=== PATIENT | female | born 1995 | race Caucasian/White ===

== ENCOUNTER 2016-10-28 15:03 | Emergency (ER) | payer SELFPAY ==
[~2016-10-28] VITALS: Ht 162.6 cm; Wt 54.1 kg
[~2016-10-28 15:03] MED LIST: AMOXICILLIN500 MG PO; ATIVAN0.5 MG PO; BACTRIM DS1 TAB PO; CIPROFLOXACN500 MG PO; K-TAB20 MEQ PO; MOTRIN800 MG PO; PHENERGAN25 MG RE; PRENATA4 PO; TESSALON PER100 MG PO; ZITHROMAX250 MG PO; ZOFRAN ODT4 MG PO; ZOFRAN4 MG/TAB PO; ZPAK PO
[2016-10-28 16:44] LABS: HEMATOCRIT 35.6 % (37.0-47.0); HEMOGLOBIN 12.2 g/dl (12.0-16.0); IMMATURE GRANULOCYTES 0.4 % (0.0-1.0); MEAN CELL VOLUME 94.2 fL CALC (80.0-100.0); MEAN CORPUSCULAR HGB 32.3 pG CALC (26.0-32.0); MEAN CORPUSCULAR HGB CONC 34.3 g/L CALC (32.0-36.0); NEUT# 8.47 thou/uL (2.00-7.15); RED BLOOD COUNT 3.78 mill/uL (4.20-5.60); RED CELL DISTRI WIDTH 12.7 % (11.5-15.5)
[2016-10-28 17:07] LABS: URINE BILIRUBIN - DIPSTICK NEGATIVE (NEGATIVE); URINE BLOOD DIPSTICK NEGATIVE (NEGATIVE); URINE CLARITY CLEAR; URINE COLOR YELLOW; URINE GLUCOSE - DIPSTICK NEGATIVE (NEGATIVE); URINE KETONE 40 mg/dL (NEGATIVE); URINE LEUK ESTERASE NEGATIVE (NEGATIVE); URINE NITRITE - DIPSTICK NEGATIVE (Negative); URINE PROTEIN - DIPSTICK NEGATIVE (NEG-TRACE); URINE SPECIFIC GRAVITY >=1.030; URINE UROBILINOGEN - DIPSTICK 0.2 E.U./dL (0.2)
[2016-10-28 17:25] LABS: ALBUMIN 4.1 g/dL (3.2-5.0); ALKALINE PHOSPHATASE 42 u/l (38-126); ANION GAP 16 (6-22 (CALC)); BILIRUBIN, TOTAL 1.5 mg/dL (0.0-1.4); BUN 8 mg/dL (7-17); BUN/CREATININE RATIO 13 (12-20 (CALC)); CALCIUM 9.4 mg/dL (8.4-10.2); CARBON DIOXIDE 22 mmol/l (22-30); CHLORIDE 101 mmol/l (95-108); CREATININE 0.6 mg/dL (0.5-1.0); GFR > 60 ML/MIN (>=60 (CALC)); GFR FOR AFR.AMER. > 60 ML/MIN (>=60 (CALC)); GLUCOSE 79 mg/dL (65-105); SGOT/AST 19 u/l (14-36); SGPT/ALT 31 u/l (9-52); SODIUM 136 mmol/l (137-146); TOTAL PROTEIN 6.4 g/dL (6.3-8.2)
[2016-10-28 18:07] LABS: BETA-HCG, QUANT(RESULT NUMBER) 55516 mIU/mL
[2016-10-28] MEDS ORDERED: PRENATAL MULTI1 CAP PO (18:07)
[2016-10-28 19:09] VITALS: BP 108/62
== END 2016-10-28 19:12 | disposition home or self-care (01) | DRG 778 ==
LOC: ED 15:03
PROVIDERS: Emergency Medicine
DX: O20.0 Threatened abortion (principal); R10.31 Right lower quadrant pain; Z3A.01 Less than 8 weeks gestation of pregnancy

== ENCOUNTER 2016-12-02 12:40 | Emergency (ER) | payer OTHER ==
[~2016-12-02] VITALS: Ht 162.6 cm; Wt 52.6 kg
[~2016-12-02 12:40] MED LIST changes: +PRENATAL MULTI1 CAP PO
[2016-12-02 14:07] LABS: IMMATURE GRANULOCYTES 0.5 % (0.0-1.0); MEAN CELL VOLUME 93.7 fL CALC (80.0-100.0); MEAN CORPUSCULAR HGB 32.8 pG CALC (26.0-32.0); NEUT# 11.05 thou/uL (2.00-7.15); RED BLOOD COUNT 4.27 mill/uL (4.20-5.60); RED CELL DISTRI WIDTH 12.6 % (11.5-15.5)
[2016-12-02 14:08] LABS: URINE BILIRUBIN - DIPSTICK SMALL (NEGATIVE); URINE BLOOD DIPSTICK NEGATIVE (NEGATIVE); URINE CLARITY CLEAR; URINE COLOR YELLOW; URINE GLUCOSE - DIPSTICK NEGATIVE (NEGATIVE); URINE KETONE >=80 mg/dL (NEGATIVE); URINE LEUK ESTERASE NEGATIVE (NEGATIVE); URINE NITRITE - DIPSTICK NEGATIVE (Negative); URINE PH 6.5 (4.5-8.0); URINE PROTEIN - DIPSTICK 30 mg/dL (NEG-TRACE); URINE SPECIFIC GRAVITY 1.025; URINE UROBILINOGEN - DIPSTICK 0.2 E.U./dL (0.2)
[2016-12-02 14:09] LABS: URINE EPITHELIAL CELLS MODERATE EPI/hpf (0-FEW); URINE RBC 0-2 RBC/hpf (0-5)
[2016-12-02 14:20] LABS: ALBUMIN 5.1 g/dL (3.2-5.0); ALKALINE PHOSPHATASE 48 u/l (38-126); ANION GAP 18 (6-22 (CALC)); BILIRUBIN, TOTAL 1.6 mg/dL (0.0-1.4); BUN 5 mg/dL (7-17); BUN/CREATININE RATIO 11 (12-20 (CALC)); CARBON DIOXIDE 23 mmol/l (22-30); CHLORIDE 102 mmol/l (95-108); CREATININE 0.5 mg/dL (0.5-1.0); GFR > 60 ML/MIN (>=60 (CALC)); GFR FOR AFR.AMER. > 60 ML/MIN (>=60 (CALC)); GLUCOSE 84 mg/dL (65-105); POTASSIUM 3.7 mmol/l (3.5-5.1); SGOT/AST 18 u/l (14-36); SGPT/ALT 31 u/l (9-52); SODIUM 139 mmol/l (137-146)
[2016-12-02 14:38] LABS: BETA-HCG, QUANT(RESULT NUMBER) 56093 mIU/mL
[2016-12-02 15:46] VITALS: BP 117/75
== END 2016-12-02 16:43 | disposition home or self-care (01) | DRG 778 ==
LOC: ED 12:40
PROVIDERS: Emergency Medicine
DX: O20.0 Threatened abortion (principal); Z3A.12 12 weeks gestation of pregnancy

== ENCOUNTER 2017-03-03 00:10 | Observation (INO) | payer OTHER ==
[2017-03-03] VITALS (13 sets, daily range): BP systolic 86–126; BP diastolic 45–62
[~2017-03-03] VITALS: Ht 162.6 cm; Wt 57.6 kg
[2017-03-03 00:32] LABS: URINE BILIRUBIN - DIPSTICK NEGATIVE (NEGATIVE); URINE BLOOD DIPSTICK NEGATIVE (NEGATIVE); URINE COLOR YELLOW; URINE GLUCOSE - DIPSTICK NEGATIVE (NEGATIVE); URINE KETONE 40 mg/dL (NEGATIVE); URINE LEUK ESTERASE NEGATIVE (NEGATIVE); URINE NITRITE - DIPSTICK NEGATIVE (Negative); URINE PROTEIN - DIPSTICK NEGATIVE (NEG-TRACE); URINE SPECIFIC GRAVITY 1.015; URINE UROBILINOGEN - DIPSTICK 0.2 E.U./dL (0.2)
[2017-03-03 00:47] LABS: URINE CLARITY SL CLOUDY
[2017-03-03 00:48] LABS: BARBITURATES NEGATIVE (NEGATIVE); COCAINE NEGATIVE (NEGATIVE); METHADONE NEGATIVE (NEGATIVE); OXCYCODONE NEGATIVE (NEGATIVE); TETRAHYDROCANNABIONOL POSITIVE (NEGATIVE); TRICYLIC ANTIDEPRESSANTS NEGATIVE (NEGATIVE)
[2017-03-03 01:56] LABS: HEMOGLOBIN 10.3 g/dl (12.0-16.0); IMMATURE GRANULOCYTES 1.4 % (0.0-1.0); MEAN CELL VOLUME 95.1 fL CALC (80.0-100.0); MEAN CORPUSCULAR HGB 33.8 pG CALC (26.0-32.0); MEAN CORPUSCULAR HGB CONC 35.5 g/L CALC (32.0-36.0); NEUT# 21.75 thou/uL (2.00-7.15); RED BLOOD COUNT 3.05 mill/uL (4.20-5.60); RED CELL DISTRI WIDTH 12.9 % (11.5-15.5)
[2017-03-03 02:18] LABS: ALBUMIN 3.3 g/dL (3.2-5.0); ALKALINE PHOSPHATASE 43 u/l (38-126); ANION GAP 11 (6-22 (CALC)); BILIRUBIN, TOTAL 1.4 mg/dL (0.0-1.4); BUN 4 mg/dL (7-17); BUN/CREATININE RATIO 9 (12-20 (CALC)); CALCIUM 8.9 mg/dL (8.4-10.2); CARBON DIOXIDE 21 mmol/l (22-30); CHLORIDE 101 mmol/l (95-108); CREATININE 0.4 mg/dL (0.5-1.0); GFR > 60 ML/MIN (>=60 (CALC)); GFR FOR AFR.AMER. > 60 ML/MIN (>=60 (CALC)); GLUCOSE 101 mg/dL (65-105); POTASSIUM 3.9 mmol/l (3.5-5.1); SGOT/AST 22 u/l (14-36); SGPT/ALT 18 u/l (9-52); SODIUM 130 mmol/l (137-146); TOTAL PROTEIN 5.7 g/dL (6.3-8.2)
[2017-03-04 00:15] VITALS: BP 93/52
[2017-03-04 06:01] VITALS: BP 96/51
[2017-03-04 06:54] LABS: HEMATOCRIT 28.7 % (37.0-47.0); HEMOGLOBIN 9.7 g/dl (12.0-16.0); MEAN CELL VOLUME 99.3 fL CALC (80.0-100.0); MEAN CORPUSCULAR HGB 33.6 pG CALC (26.0-32.0); MEAN CORPUSCULAR HGB CONC 33.8 g/L CALC (32.0-36.0); NEUT# 6.83 thou/uL (2.00-7.15); RED BLOOD COUNT 2.89 mill/uL (4.20-5.60); RED CELL DISTRI WIDTH 13.4 % (11.5-15.5)
[2017-03-04 07:03] VITALS: BP 109/62
[2017-03-04 11:30] VITALS: BP 112/58
[2017-03-04] MEDS ORDERED: KEFLEX500 MG PO (12:53)
== END 2017-03-04 13:05 | disposition home or self-care (01) | DRG 781 ==
LOC: OB 00:10 → OBOP 00:10 → OB 00:55
PROVIDERS: ADMIT Obstetrics & Gynecology; ATTEND Obstetrics & Gynecology
DX: O23.02 Infections of kidney in pregnancy, second trimester (principal); O99.322 Drug use complicating pregnancy, second trimester; F12.90 Cannabis use, unspecified, uncomplicated; O21.0 Mild hyperemesis gravidarum; Z3A.24 24 weeks gestation of pregnancy
CPT/HCPCS: G0378

== ENCOUNTER 2018-02-06 15:04 | Emergency (ER) | payer OTHER ==
[~2018-02-06] VITALS: Ht 162.6 cm; Wt 76.0 kg
[~2018-02-06 15:04] MED LIST changes: +KEFLEX500 MG PO
[2018-02-06 16:19] LABS: HEMOGLOBIN 11.5 g/dl (12.0-16.0); IMMATURE GRANULOCYTES 0.5 % (0.0-5.0); MEAN CORPUSCULAR HGB 30.3 pG CALC (26.0-32.0); MEAN CORPUSCULAR HGB CONC 32.9 g/L CALC (32.0-36.0); NEUT# 6.46 thou/uL (2.00-7.15); RED BLOOD COUNT 3.8 mill/uL (4.20-5.60); RED CELL DISTRI WIDTH 13.8 % (11.5-15.5)
[2018-02-06 16:20] LABS: MEAN CELL VOLUME 92.1 fL CALC (80.0-100.0)
[2018-02-06 16:21] LABS: URINE BILIRUBIN - DIPSTICK NEGATIVE (NEGATIVE); URINE BLOOD DIPSTICK TRACE-INTACT (NEGATIVE); URINE CLARITY CLEAR; URINE COLOR YELLOW; URINE GLUCOSE - DIPSTICK NEGATIVE (NEGATIVE); URINE KETONE NEGATIVE (NEGATIVE); URINE LEUK ESTERASE NEGATIVE (NEGATIVE); URINE NITRITE - DIPSTICK NEGATIVE (Negative); URINE PROTEIN - DIPSTICK NEGATIVE (NEG-TRACE); URINE UROBILINOGEN - DIPSTICK 0.2 E.U./dL (0.2)
[2018-02-06 16:41] LABS: ALKALINE PHOSPHATASE 52 u/l (38-126); BILIRUBIN, TOTAL 0.6 mg/dL (0.0-1.4); BUN 11 mg/dL (7-17); BUN/CREATININE RATIO 19 (12-20 (CALC)); CARBON DIOXIDE 20 mmol/l (22-30); CHLORIDE 107 mmol/l (95-108); CREATININE 0.6 mg/dL (0.5-1.0); GFR > 60 ML/MIN (>=60 (CALC)); GFR FOR AFR.AMER. > 60 ML/MIN (>=60 (CALC)); LIPASE 170 u/l (23-300); POTASSIUM 3.8 mmol/l (3.5-5.1); SGOT/AST 25 u/l (14-36); TOTAL PROTEIN 6.8 g/dL (6.3-8.2)
[2018-02-06 16:47] LABS: ANION GAP 17 (6-22 (CALC)); SODIUM 140 mmol/l (137-146)
[2018-02-06 17:50] VITALS: BP 122/56
== END 2018-02-06 18:03 | disposition home or self-care (01) | DRG 90 ==
LOC: ED 15:04
PROVIDERS: Family Medicine
DX: S06.0X0A Concussion without loss of consciousness, initial encounter (principal); S00.03XA Contusion of scalp, initial encounter; V53.6XXA Passenger in pick-up truck or van injured in collision with car, pick-up truck or van in traffic accident, initial encounter

== ENCOUNTER 2019-09-27 05:14 | Emergency (ER) | payer MEDICAID ==
[~2019-09-27] VITALS: Ht 162.6 cm; Wt 68.2 kg
[2019-09-27 06:09] LABS: IMMATURE GRANULOCYTES 0.7 % (0.0-5.0); MEAN CELL VOLUME 89.5 fL CALC (80.0-100.0); MEAN CORPUSCULAR HGB 31.3 pG CALC (26.0-32.0); NEUT# 11.72 thou/uL (2.00-7.15); RED BLOOD COUNT 4.66 mill/uL (4.20-5.60); RED CELL DISTRI WIDTH 13.1 % (11.5-15.5)
[2019-09-27 06:17] LABS: HEMATOCRIT 41.7 % (37.0-47.0); HEMOGLOBIN 14.6 g/dl (12.0-16.0)
[2019-09-27 06:25] LABS: URINE BLOOD DIPSTICK NEGATIVE (NEGATIVE); URINE COLOR YELLOW; URINE GLUCOSE - DIPSTICK NEGATIVE (NEGATIVE); URINE KETONE >=80 mg/dL (NEGATIVE); URINE LEUK ESTERASE NEGATIVE (NEGATIVE); URINE NITRITE - DIPSTICK NEGATIVE (Negative); URINE PROTEIN - DIPSTICK 100 mg/dL (NEG-TRACE); URINE SPECIFIC GRAVITY >=1.030; URINE UROBILINOGEN - DIPSTICK 0.2 E.U./dL (0.2)
[2019-09-27 06:26] LABS: URINE BILIRUBIN - DIPSTICK NEGATIVE (NEGATIVE)
[2019-09-27 06:28] LABS: ALBUMIN 5.2 g/dL (3.2-5.0); ALKALINE PHOSPHATASE 69 u/l (38-126); ANION GAP 19 (6-22 (CALC)); BILIRUBIN, TOTAL 1.8 mg/dL (0.0-1.4); BUN 14 mg/dL (7-17); BUN/CREATININE RATIO 21 (12-20 (CALC)); CARBON DIOXIDE 21 mmol/l (22-30); CHLORIDE 98 mmol/l (95-108); CREATININE 0.7 mg/dL (0.5-1.0); ETHYL ALCOHOL 0 mg/dl (0-30); GFR > 60 ML/MIN (>=60 (CALC)); GFR FOR AFR.AMER. > 60 ML/MIN (>=60 (CALC)); POTASSIUM 3.4 mmol/l (3.5-5.1); SGOT/AST 30 u/l (14-36); SODIUM 134 mmol/l (137-146); TOTAL PROTEIN 8.6 g/dL (6.3-8.2)
[2019-09-27 06:30] LABS: URINE RBC 0-2 RBC/hpf (0-5); URINE SQUAMOUS EPITHELIAL CELL FEW EPI/hpf (0-FEW); URINE WBC 0-2 WBC/hpf (0-5)
[2019-09-27 06:31] LABS: URINE AMORPH SEDIMENT MANY hpf (NONE-FEW)
[2019-09-27] MEDS ORDERED: VISTARIL25 MG PO (06:53)
[2019-09-27] MEDS ORDERED: PHENERGAN25 MG RE (06:53)
[2019-09-27 07:08] VITALS: BP 133/78
== END 2019-09-27 07:31 | disposition home or self-care (01) | DRG 833 ==
LOC: ED 05:14
PROVIDERS: Family Medicine
DX: O21.9 Vomiting of pregnancy, unspecified (principal); O99.340 Other mental disorders complicating pregnancy, unspecified trimester; O99.330 Smoking (tobacco) complicating pregnancy, unspecified trimester; F17.200 Nicotine dependence, unspecified, uncomplicated; Z3A.00 Weeks of gestation of pregnancy not specified

== ENCOUNTER 2019-09-29 08:11 | Emergency (ER) | payer OTHER ==
[~2019-09-29] VITALS: Ht 162.6 cm; Wt 63.6 kg
[~2019-09-29 08:11] MED LIST changes: +VISTARIL25 MG PO
[2019-09-29 08:51] LABS: HEMATOCRIT 39.6 % (37.0-47.0); HEMOGLOBIN 13.9 g/dl (12.0-16.0); IMMATURE GRANULOCYTES 0.8 % (0.0-5.0); MEAN CORPUSCULAR HGB 31.6 pG CALC (26.0-32.0); MEAN CORPUSCULAR HGB CONC 35.1 g/dL CAL (32.0-36.0); NEUT# 11.81 thou/uL (2.00-7.15); RED BLOOD COUNT 4.4 mill/uL (4.20-5.60); RED CELL DISTRI WIDTH 12.6 % (11.5-15.5)
[2019-09-29 08:54] LABS: URINE BLOOD DIPSTICK NEGATIVE (NEGATIVE); URINE COLOR YELLOW; URINE GLUCOSE - DIPSTICK NEGATIVE (NEGATIVE); URINE KETONE >=80 mg/dL (NEGATIVE); URINE LEUK ESTERASE NEGATIVE (NEGATIVE); URINE NITRITE - DIPSTICK NEGATIVE (Negative); URINE PROTEIN - DIPSTICK 30 mg/dL (NEG-TRACE); URINE SPECIFIC GRAVITY >=1.030
[2019-09-29 08:55] LABS: URINE BILIRUBIN - DIPSTICK NEGATIVE (NEGATIVE)
[2019-09-29] MEDS ORDERED: PYRIDOXINE25 MG PO (08:56)
[2019-09-29 09:02] LABS: URINE BACTERIA FEW hpf; URINE MUCUS FEW hpf (NONE-FEW); URINE SQUAMOUS EPITHELIAL CELL MODERATE EPI/hpf (0-FEW); URINE WBC 0-2 WBC/hpf (0-5)
[2019-09-29 09:08] LABS: ALBUMIN 4.9 g/dL (3.2-5.0); ALKALINE PHOSPHATASE 60 u/l (38-126); ANION GAP 19 (6-22 (CALC)); BILIRUBIN, TOTAL 1.9 mg/dL (0.0-1.4); BUN 11 mg/dL (7-17); BUN/CREATININE RATIO 22 (12-20 (CALC)); CARBON DIOXIDE 20 mmol/l (22-30); CHLORIDE 97 mmol/l (95-108); CREATININE 0.5 mg/dL (0.5-1.0); GFR > 60 ML/MIN (>=60 (CALC)); GFR FOR AFR.AMER. > 60 ML/MIN (>=60 (CALC)); LIPASE 38 u/l (23-300); SGOT/AST 35 u/l (14-36); SODIUM 133 mmol/l (137-146); TOTAL PROTEIN 7.9 g/dL (6.3-8.2)
[2019-09-29] MEDS ORDERED: PHENERGAN25 MG/TAB PO (10:01)
[2019-09-29] MEDS ORDERED: K-TAB20 MEQ PO (10:01)
[2019-09-29 11:00] VITALS: BP 128/70
== END 2019-09-29 11:00 | disposition home or self-care (01) | DRG 833 ==
LOC: ED 08:11
PROVIDERS: Family Medicine
DX: O21.9 Vomiting of pregnancy, unspecified (principal); O99.342 Other mental disorders complicating pregnancy, second trimester; F41.9 Anxiety disorder, unspecified; O99.331 Smoking (tobacco) complicating pregnancy, first trimester; F17.200 Nicotine dependence, unspecified, uncomplicated; Z3A.10 10 weeks gestation of pregnancy

== ENCOUNTER 2020-04-17 18:20 | Emergency (ER) | payer OTHER ==
[~2020-04-17 18:20] MED LIST changes: +PHENERGAN25 MG/TAB PO; +PYRIDOXINE25 MG PO
== END 2020-04-17 18:42 | disposition left against medical advice (07) | DRG 951 ==
LOC: ED 18:20 → LWOBS 18:42
DX: Z53.21 Procedure and treatment not carried out due to patient leaving prior to being seen by health care provider (principal)

== ENCOUNTER 2020-05-03 21:11 | Emergency (ER) | payer OTHER ==
[~2020-05-03] VITALS: Ht 162.6 cm; Wt 66.0 kg
[2020-05-03] MEDS ORDERED: PRENATA3 PO (21:33)
[2020-05-03 21:59] LABS: HEMATOCRIT 29.9 % (37.0-47.0); HEMOGLOBIN 9.6 g/dl (12.0-16.0); IMMATURE GRANULOCYTES 0.7 % (0.0-5.0); MEAN CORPUSCULAR HGB 28.5 pG CALC (26.0-32.0); MEAN CORPUSCULAR HGB CONC 32.1 g/dL CAL (32.0-36.0); NEUT# 6.86 thou/uL (2.00-7.15); RED BLOOD COUNT 3.37 mill/uL (4.20-5.60); RED CELL DISTRI WIDTH 13.4 % (11.5-15.5)
[2020-05-03 22:00] LABS: MEAN CELL VOLUME 88.7 fL CALC (80.0-100.0)
[2020-05-03 22:01] LABS: URINE BILIRUBIN - DIPSTICK NEGATIVE (NEGATIVE); URINE BLOOD DIPSTICK NEGATIVE (NEGATIVE); URINE COLOR YELLOW; URINE GLUCOSE - DIPSTICK NEGATIVE (NEGATIVE); URINE KETONE NEGATIVE (NEGATIVE); URINE LEUK ESTERASE NEGATIVE (NEGATIVE); URINE NITRITE - DIPSTICK NEGATIVE (Negative); URINE PROTEIN - DIPSTICK NEGATIVE (NEG-TRACE); URINE SPECIFIC GRAVITY 1.025; URINE UROBILINOGEN - DIPSTICK 0.2 E.U./dL (0.2)
[2020-05-03 22:17] LABS: ALKALINE PHOSPHATASE 90 u/l (38-126); ANION GAP 9 (6-22 (CALC)); BUN 3 mg/dL (7-17); BUN/CREATININE RATIO 7 (12-20 (CALC)); CARBON DIOXIDE 22 mmol/l (22-30); CHLORIDE 103 mmol/l (95-108); CREATININE 0.4 mg/dL (0.5-1.0); GFR > 60 ML/MIN (>=60 (CALC)); GFR FOR AFR.AMER. > 60 ML/MIN (>=60 (CALC)); POTASSIUM 3.4 mmol/l (3.5-5.1); SGOT/AST 22 u/l (14-36); SODIUM 131 mmol/l (137-146)
[2020-05-03 22:18] LABS: ALBUMIN 3.3 g/dL (3.2-5.0); BILIRUBIN, TOTAL 0.8 mg/dL (0.0-1.4); TOTAL PROTEIN 6.1 g/dL (6.3-8.2)
[2020-05-03 22:50] VITALS: BP 122/67
== END 2020-05-03 23:26 | disposition home or self-care (01) ==
LOC: ED 21:11
PROVIDERS: Family Medicine
DX: O99.353 Diseases of the nervous system complicating pregnancy, third trimester (principal); G43.109 Migraine with aura, not intractable, without status migrainosus; O9A.213 Injury, poisoning and certain other consequences of external causes complicating pregnancy, third trimester; S39.012A Strain of muscle, fascia and tendon of lower back, initial encounter; O99.333 Smoking (tobacco) complicating pregnancy, third trimester; F17.200 Nicotine dependence, unspecified, uncomplicated; X58.XXXA Exposure to other specified factors, initial encounter; Z3A.37 37 weeks gestation of pregnancy

== ENCOUNTER 2020-12-03 06:11 | Emergency (ER) | payer OTHER ==
[~2020-12-03] VITALS: Ht 162.6 cm; Wt 68.0 kg
[~2020-12-03 06:11] MED LIST changes: +PRENATA3 PO
[2020-12-03 07:09] LABS: IMMATURE GRANULOCYTES 0.6 % (0.0-5.0); MEAN CORPUSCULAR HGB 31.4 pG CALC (26.0-32.0); MEAN CORPUSCULAR HGB CONC 33.2 g/dL CAL (32.0-36.0); NEUT# 8.4 thou/uL (2.00-7.15); RED BLOOD COUNT 4.39 mill/uL (4.20-5.60); RED CELL DISTRI WIDTH 12.8 % (11.5-15.5)
[2020-12-03 07:10] LABS: HEMATOCRIT 41.6 % (37.0-47.0); HEMOGLOBIN 13.8 g/dl (12.0-16.0); MEAN CELL VOLUME 94.8 fL CALC (80.0-100.0)
[2020-12-03 07:22] LABS: ALKALINE PHOSPHATASE 68 u/l (38-126); AMYLASE 45 u/l (30-110); BUN 10 mg/dL (7-17); BUN/CREATININE RATIO 15 (12-20 (CALC)); CHLORIDE 101 mmol/l (95-108); CREATININE 0.7 mg/dL (0.5-1.0); GFR > 60 ML/MIN (>=60 (CALC)); GFR FOR AFR.AMER. > 60 ML/MIN (>=60 (CALC)); LIPASE 36 u/l (23-300); POTASSIUM 3.4 mmol/l (3.5-5.1); SGOT/AST 27 u/l (14-36); SODIUM 137 mmol/l (137-146)
[2020-12-03 07:24] LABS: ALBUMIN 4.6 g/dL (3.2-5.0); ANION GAP 10 (6-22 (CALC)); BILIRUBIN, TOTAL 1.3 mg/dL (0.0-1.4); CARBON DIOXIDE 29 mmol/l (22-30); TOTAL PROTEIN 8.1 g/dL (6.3-8.2)
[2020-12-03 08:46] LABS: URINE BILIRUBIN - DIPSTICK NEGATIVE (NEGATIVE); URINE BLOOD DIPSTICK TRACE-INTACT (NEGATIVE); URINE COLOR YELLOW; URINE GLUCOSE - DIPSTICK NEGATIVE (NEGATIVE); URINE KETONE NEGATIVE (NEGATIVE); URINE PROTEIN - DIPSTICK NEGATIVE (NEG-TRACE); URINE SPECIFIC GRAVITY <=1.005; URINE UROBILINOGEN - DIPSTICK 0.2 E.U./dL (0.2)
[2020-12-03 08:48] LABS: URINE LEUK ESTERASE LARGE (NEGATIVE); URINE NITRITE - DIPSTICK NEGATIVE (Negative)
[2020-12-03 08:55] LABS: URINE RBC 0-2 RBC/hpf (0-5); URINE SQUAMOUS EPITHELIAL CELL FEW EPI/hpf (0-FEW)
[2020-12-03 11:52] VITALS: BP 110/60
== END 2020-12-03 11:53 | disposition home or self-care (01) ==
LOC: ED 06:11
PROVIDERS: Family Medicine
DX: O20.0 Threatened abortion (principal); O23.40 Unspecified infection of urinary tract in pregnancy, unspecified trimester; B96.20 Unspecified Escherichia coli [E. coli] as the cause of diseases classified elsewhere; O99.340 Other mental disorders complicating pregnancy, unspecified trimester; F41.9 Anxiety disorder, unspecified; F32.9 Major depressive disorder, single episode, unspecified; F17.290 Nicotine dependence, other tobacco product, uncomplicated; Z3A.00 Weeks of gestation of pregnancy not specified
CPT/HCPCS: J2790

== ENCOUNTER 2021-10-15 17:03 | Emergency (ER) | payer OTHER ==
[~2021-10-15] VITALS: Ht 162.6 cm; Wt 68.0 kg
[2021-10-15 17:37] LABS: URINE BILIRUBIN - DIPSTICK NEGATIVE (NEGATIVE); URINE BLOOD DIPSTICK NEGATIVE (NEGATIVE); URINE COLOR YELLOW; URINE GLUCOSE - DIPSTICK NEGATIVE (NEGATIVE); URINE KETONE NEGATIVE (NEGATIVE); URINE LEUK ESTERASE TRACE (NEGATIVE); URINE PH 6.5 (4.5-8.0); URINE PROTEIN - DIPSTICK NEGATIVE (NEG-TRACE); URINE UROBILINOGEN - DIPSTICK 0.2 E.U./dL (0.2)
[2021-10-15 17:38] LABS: URINE NITRITE - DIPSTICK NEGATIVE (Negative)
[2021-10-15] MEDS ORDERED: NAPROXEN EC500 MG PO (18:31)
[2021-10-15] MEDS ORDERED: DOXYCYCLINE100 MG PO (18:31)
[2021-10-15 18:39] VITALS: BP 127/87
== END 2021-10-15 18:47 | disposition home or self-care (01) ==
LOC: ED 17:03
DX: N72 Inflammatory disease of cervix uteri (principal); F41.9 Anxiety disorder, unspecified; F32.A Depression, unspecified; F17.290 Nicotine dependence, other tobacco product, uncomplicated; Z20.2 Contact with and (suspected) exposure to infections with a predominantly sexual mode of transmission

== ENCOUNTER 2022-10-18 16:32 | Emergency (ER) | payer OTHER ==
[2022-10-18] VITALS (9 sets, daily range): BP systolic 110–132; BP diastolic 70–92
[~2022-10-18] VITALS: Ht 162.6 cm; Wt 71.0 kg
[~2022-10-18 16:32] MED LIST changes: +DOXYCYCLINE100 MG PO; +NAPROXEN EC500 MG PO
[2022-10-18 17:04] LABS: URINE BILIRUBIN - DIPSTICK NEGATIVE (NEGATIVE); URINE BLOOD DIPSTICK NEGATIVE (NEGATIVE); URINE CLARITY CLEAR; URINE COLOR YELLOW; URINE GLUCOSE - DIPSTICK NEGATIVE (NEGATIVE); URINE KETONE TRACE mg/dL (NEGATIVE); URINE LEUK ESTERASE NEGATIVE (Negative); URINE NITRITE - DIPSTICK NEGATIVE (Negative); URINE PROTEIN - DIPSTICK NEGATIVE (NEG-TRACE); URINE SPECIFIC GRAVITY 1.025
[2022-10-18] MEDS ORDERED: ZOFRAN4 MG/TAB PO (20:05)
== END 2022-10-18 20:30 | disposition home or self-care (01) ==
LOC: ED 16:32
PROVIDERS: Family Medicine
DX: O20.0 Threatened abortion (principal); O21.1 Hyperemesis gravidarum with metabolic disturbance; O99.330 Smoking (tobacco) complicating pregnancy, unspecified trimester; F17.200 Nicotine dependence, unspecified, uncomplicated; Z3A.00 Weeks of gestation of pregnancy not specified

== ENCOUNTER 2023-04-12 19:52 | Emergency (ER) | payer OTHER ==
[~2023-04-12] VITALS: Ht 162.6 cm; Wt 75.0 kg
[2023-04-12 20:02] VITALS: BP 137/84
[2023-04-12 20:30] VITALS: BP 118/80
[2023-04-12 20:30] LABS: BASO% 0.3 % (0-3); EOS% 1.1 % (0-8); HEMATOCRIT 35.4 % (37.0-47.0); HEMOGLOBIN 11.6 g/dl (12.0-16.0); IMMATURE GRANULOCYTES 0.6 % (0.0-5.0); MEAN CORPUSCULAR HGB CONC 32.8 g/dL CAL (32.0-36.0); MONO% 7.5 % (2-13); NEUT# 7.48 thou/uL (2.00-7.15); NEUT% 70.5 % (42-76)
[2023-04-12 20:32] LABS: MEAN CELL VOLUME 88.5 fL CALC (80.0-100.0)
[2023-04-12 20:37] LABS: URINE BLOOD DIPSTICK Negative (NEGATIVE); URINE GLUCOSE - DIPSTICK Negative (NEGATIVE); URINE KETONE >=160 mg/dL (NEGATIVE); URINE LEUK ESTERASE Negative (NEGATIVE); URINE NITRITE - DIPSTICK Negative (Negative); URINE PROTEIN - DIPSTICK Negative (NEG-TRACE); URINE SPECIFIC GRAVITY 1.025; URINE UROBILINOGEN - DIPSTICK 0.2 E.U./dL (0.2)
[2023-04-12 20:40] LABS: URINE COLOR Yellow
[2023-04-12 20:42] LABS: ALBUMIN 4.3 g/dL (3.2-5.0); BUN 5 mg/dL (7-17); BUN/CREATININE RATIO 10 (12-20 (CALC)); CHLORIDE 103 mmol/l (95-108); CREATININE 0.5 mg/dL (0.5-1.0); GFR FOR AFR.AMER. > 60 ML/MIN (>=60 (CALC)); GFR OTHER RACES > 60 ML/MIN (>=60 (CALC)); POTASSIUM 3.7 mmol/l (3.5-5.1); SGOT/AST 36 u/l (14-36); SODIUM 134 mmol/l (137-146); TOTAL PROTEIN 7.3 g/dL (6.3-8.2)
[2023-04-12 20:44] LABS: ALKALINE PHOSPHATASE 140 u/l (38-126); ANION GAP 18 (6-22 (CALC)); BILIRUBIN, TOTAL 1.7 mg/dL (0.02-1.3); CARBON DIOXIDE 17 mmol/l (22-30)
[2023-04-12 20:56] VITALS: BP 118/80
== END 2023-04-12 21:00 | disposition left against medical advice (07) ==
LOC: ED 19:52
PROVIDERS: Family Medicine
DX: O26.893 Other specified pregnancy related conditions, third trimester (principal); R10.2 Pelvic and perineal pain; O09.33 Supervision of pregnancy with insufficient antenatal care, third trimester; O99.333 Smoking (tobacco) complicating pregnancy, third trimester; F17.200 Nicotine dependence, unspecified, uncomplicated; Z3A.36 36 weeks gestation of pregnancy; Z53.29 Procedure and treatment not carried out because of patient's decision for other reasons